=== PATIENT | female | born 2000 | race Caucasian/White ===

== ENCOUNTER 2025-01-13 21:39 | Emergency (ER) | payer BC ==
[~2025-01-13] VITALS: Ht 170.2 cm; Wt 71.4 kg
[2025-01-13 22:42] LABS: BASO # 0.1 10^3/uL (0.0-0.2); BASO % 0.9 % (0.0-1.0); EOS # 0.1 10^3/uL (0.0-0.5); EOS % 1.8 % (0.0-3.0); LYMPH # 2.5 10^3/uL (1.5-5.0); LYMPH % 45.1 % (24.0-44.0); MONO # 0.5 10^3/uL (0.0-0.8); MONO % 9.6 % (2.0-8.0); NEUTROPHILS # 2.3 10^3/uL (1.5-8.5); NEUTROPHILS % 42.4 % (36.0-66.0); PLATELET COUNT, AUTOMATED 260 10^3/uL (150-450)
[2025-01-13 22:56] LABS: KETONE, URINE AUTO RFX TRACE mg/dL (NEGATIVE); LEUKOCYTE ESTERASE UR AUTO RFX NEGATIVE (NEGATIVE); MUCUS, URINE RFX SMALL (NEGATIVE); NITRITE, URINE AUTO RFX NEGATIVE (NEGATIVE); RBC, URINE AUTO RFX 135 /HPF (0-3); SQUAM EPITHELIAL CELL UR AURFX 2 /HPF (0-6); WBC, URINE AUTO RFX 2 /HPF (0-3)
[2025-01-13 23:13] LABS: HCG, SERUM QUALITATIVE NEGATIVE (NEGATIVE)
[2025-01-13 23:31] LABS: CALCIUM LEVEL 8.9 MG/DL (8.5-10.1); CARBON DIOXIDE LEVEL 26 MMOL/L (20-31); CHLORIDE LEVEL 107 MMOL/L (98-107); CREATININE FOR GFR 0.78 MG/DL (0.55-1.30); GLOMERULAR FILTRATION RATE > 90.0 (>60); POTASSIUM SERUM 3.7 MMOL/L (3.5-5.1); SODIUM LEVEL 144 MMOL/L (136-145)
[2025-01-14 00:08] VITALS: TEMP 98.1
[2025-01-14 02:56] LABS: ALT/SGPT 10 U/L (7.0-40); AST/SGOT 17 U/L (<34)
[2025-01-14 03:50] VITALS: BP 126/81; O2SAT 99
== END 2025-01-14 04:10 | disposition home or self-care (01) ==
LOC: M ED 21:39
DX: M79.10 Myalgia, unspecified site (principal); N83.291 Other ovarian cyst, right side